=== PATIENT | male | born 1970 | race Caucasian/White ===

== ENCOUNTER 2016-08-30 19:03 | Emergency (ER) | payer OTHER ==
[2016-08-30] MEDS ORDERED: SODIUM CHLORIDE 0.9% 1,000 ML ONE (19:18)
[2016-08-30 19:27] LABS: ABSOLUTE NEUTROPHIL COUNT 8.3 K/mm3 (1.8-7.7); BASO % 0.3 % (0.2-1.0); EOS # 0.2 (0.0-0.5); EOS % 1.5 % (0.9-2.9); HEMATOCRIT 42.9 % (32.0-52.0); HEMOGLOBIN 14.1 gm/l (14.0-18.0); IMM NEUT% 0.3 % (0-1); LYMPH # 0.6 (1.0-4.8); LYMPH % 6.1 % (15-45); MEAN CELL VOLUME 97.9 fl (80.0-94.0); MEAN CORPUSCULAR HEMOGLOBIN 32.2 pg (27.0-31.0); MEAN CORPUSCULAR HGB CONC 32.9 g/dl (33.0-37.0); MEAN PLATELET VOLUME 9.8 fl (7.4-10.4); MONO # 0.5 (0.0-0.8); MONO % 5.6 % (4-12); NEUT % 86.2 % (43-75); PLATELET COUNT 144 K/mm3 (130-400); RED CELL DISTRIBUTION WIDTH 12.3 % (11.5-14.5)
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
[2016-08-30 20:14] LABS: ALB/GLOB RATIO 1.6 (>1.0); ALBUMIN 4.4 gm/dL (3.5-5.7); CALCIUM 8.3 mg/dL (8.6-10.3)
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
[2016-08-30] MEDS ORDERED: ONDANSETRON 4 MG/2ML 2 ML VIAL ONE (20:28)
[2016-08-30 21:25] LABS: URINE BILIRUBIN NEGATIVE (NEGATIVE); URINE BLOOD NEGATIVE (NEGATIVE); URINE GLUCOSE (UA) NEGATIVE (NEGATIVE); URINE LEUKOCYTE ESTERASE NEGATIVE (NEGATIVE); URINE NITRITE NEGATIVE (NEGATIVE); URINE PROTEIN 1+ (NEGATIVE); URINE UROBILINOGEN NORMAL (0-1 mg/dl)
[2016-08-30 21:27] LABS: URINE APPEARANCE CLEAR; URINE COLOR YELLOW
[2016-08-30 21:53] LABS: URINE BACTERIA RARE; URINE EPITHELIAL CELLS 0-2 /hpf; URINE RBC 0 /hpf; URINE WBC 0-2 /hpf
[2016-08-30 21:55] LABS: AMPHETAMINES/METHAMPHETAMINES NEGATIVE (NEGATIVE); COCAINE NEGATIVE (NEGATIVE); MARIJUANA NEGATIVE (NEGATIVE); METHADONE NEGATIVE (NEGATIVE); OPIATES NEGATIVE (NEGATIVE); TRICYCLIC ANTIDEPRESSANTS NEGATIVE (NEGATIVE)
== END 2016-08-30 21:42 | disposition home or self-care (01) ==
LOC: ED 19:03
DX: F10.129 Alcohol abuse with intoxication, unspecified (principal); Y90.7 Blood alcohol level of 200-239 mg/100 ml; I10 Essential (primary) hypertension; R91.1 Solitary pulmonary nodule; H05.10 Unspecified chronic inflammatory disorders of orbit; H55.00 Unspecified nystagmus; R11.0 Nausea; R19.7 Diarrhea, unspecified; V57.5XXA Driver of pick-up truck or van injured in collision with fixed or stationary object in traffic accident, initial encounter; Y92.410 Unspecified street and highway as the place of occurrence of the external cause; Y99.0 Civilian activity done for income or pay
CPT/HCPCS: 85025; 80305; 80053; 80307; 83735; 84484; 81001; 71010; 72125; 70450; 99284 ×2; 96374; 96361; 36415; 93005; J2405; J7030